=== PATIENT | female | born 1940 | race Two or more races ===

== ENCOUNTER 2017-06-27 10:10 | Inpatient (IN) | payer MEDICARE, OTHER ==
[~2017-06-27] VITALS: Ht 152.4 cm; Wt 57.9 kg
[~2017-06-27 10:10] MED LIST: ASPI81CH43; ATEN50TA; CALC0.25; CHOL20003; CRAN400T2; FURO40TA4; HUMALOG; HYDR50TA15; INSLANTI SC; ISOS1TAB37; LOSA50TA6; LOVA40TA55; NITR0.4S31
[2017-06-27] MEDS ORDERED: LEVOFLOXACIN 500 MG/100 ML PREMIX BAG IV ONE (10:30)
[2017-06-27 13:13] LABS: Basophils # (auto) 0.1 uL; Basophils % (auto) 1.4 % (0.0-2.0); Eosinophils # (auto) 0 uL; Eosinophils % (auto) 0.6 % (0.0-7.0); Hematocrit 32.1 % (36.0-46.0); Hemoglobin 10.6 g/dL (12.2-16.2); Lymphocytes # (auto) 0.6 uL; Lymphocytes % (auto) 13.3 % (10.0-50.0); Mean Corpuscular Hemoglobin 30.5 pg (28.0-32.0); Mean Corpuscular Volume 92.5 fL (80.0-100.0); Monocytes # (auto) 0.4 uL; Monocytes % (auto) 8.7 % (0.0-12.0); Neutrophils # (auto) 3.5 uL; Nucleated Red Blood Cells % 0.2 %; Platelet Count (auto) 172 10^3/uL (140-450); Red Blood Cells 3.47 10^6/uL (4.0-5.20); Red Cell Distribution Width 18.9 % (11.8-14.3); White Blood Cell 4.7 10^3/uL (4.4-10.8)
[2017-06-27 13:22] LABS: Albumin 2.9 g/dL (3.4-5.0); BUN/Creatinine Ratio 22.6; Calcium 8.3 mg/dL (8.5-10.1); Magnesium 2.6 mg/dL (1.6-2.6); Potassium 4.9 mmol/L (3.5-5.1)
[2017-06-27 13:27] LABS: INR 1.21 (0.9-1.15); Partial Thromboplastin Time 37.5 sec (22.64-33.71); Prothrombin Time 13.2 sec (9.37-12.3)
[2017-06-27 13:38] LABS: Total Protein 6.6 g/dL (6.4-8.2)
[2017-06-27] MEDS ORDERED: NITROGLYCERIN 0.4 MG SL TAB SL PRN (14:15)
[2017-06-27] MEDS ORDERED: MORPHINE SULFATE 4 MG/ML SYR/VIAL IV PRN (14:15)
[2017-06-27] MEDS ORDERED: POTASSIUM CHL 10 Meq TABLET PO ONE (14:15)
[2017-06-27] MEDS ORDERED: ONDANSETRON HCL 4 MG/2 ML VIAL IV PRN (14:15)
[2017-06-27] MEDS ORDERED: cefTRIAXone 1GM/10ml IVPUSH 10 ML IV ONE (14:15)
[2017-06-27] MEDS ORDERED: AZITHROMYCIN 500MG/ 250ML 250 ML IV ONE (14:15)
[2017-06-27] MEDS ORDERED: ASPirin 81 mg TAB PO ONE (14:15)
[2017-06-27] MEDS ORDERED: FUROSEMIDE 40 MG TAB PO ONE (14:15)
[2017-06-27 14:56] LABS: Urine Bacteria MOD /hpf (None Seen); Urine Blood Negative /uL (Negative); Urine Specific Gravity 1.013 (1.001-1.035); Urine WBC 6 /hpf (0 - 5)
[2017-06-27] MEDS ORDERED: IPRATROPIUM BROM 0.5 MG/2.5ML INH SOL NEB ONE (15:15)
[2017-06-27] MEDS ORDERED: ALBUTEROL SULF 2.5 MG/0.5ML(0.5%) NEB SOLN NEB ONE (15:15)
[2017-06-27] MEDS: ISOSORBIDE DINITRATE 10 MG TAB PO SCH (18:48)
[2017-06-27] MEDS: ACETAMINOPHEN 500 MG TAB PO PRN (18:48)
[2017-06-27 22:00] VITALS: BP 107/56
[2017-06-27 22:10] VITALS: BP 107/56
[2017-06-27] MEDS: ATORVASTATIN 20 MG TAB PO SCH (22:36)
[2017-06-28] MEDS ORDERED: CRAN125T PO (02:58)
[2017-06-28] MEDS ORDERED: HYDR50TA15 PO (02:58)
[2017-06-28] MEDS ORDERED: INSLISPI SC (02:58)
[2017-06-28] MEDS ORDERED: INSLANTI SC ×2 (02:58)
[2017-06-28] MEDS ORDERED: ISOS1TAB37 PO (02:58)
[2017-06-28] MEDS ORDERED: LOSA50TA6 PO (02:58)
[2017-06-28] MEDS ORDERED: NITR0.4S29 SL (02:58)
[2017-06-28] MEDS ORDERED: ATEN50TA PO (02:58)
[2017-06-28] MEDS ORDERED: FURO40TA4 PO (02:58)
[2017-06-28] MEDS ORDERED: CHOL20007 OR (02:58)
[2017-06-28] MEDS ORDERED: CALC3OIN2 EX (02:58)
[2017-06-28] MEDS ORDERED: LOVA40TA72 PO (02:58)
[2017-06-28] MEDS ORDERED: ASPI81TA27 PO (02:58)
[2017-06-28] MEDS ORDERED: HEPARIN DRIP/D5W 100UNITS/ML 250 ML IV SCH ×2 (03:13→07:00)
[2017-06-28] MEDS ORDERED: DEXTROSE (50%) 50ML SYRG IV PRN (03:15)
[2017-06-28] MEDS ORDERED: HEPARIN SODIUM (PORCINE) 5000 UNITS/ML 1ML VIAL IV ONE (03:15)
[2017-06-28 04:58] LABS: Basophils # (auto) 0 uL; Basophils % (auto) 0.6 % (0.0-2.0); Eosinophils # (auto) 0 uL; Eosinophils % (auto) 0.8 % (0.0-7.0); Hematocrit 35.7 % (36.0-46.0); Hemoglobin 10.7 g/dL (12.2-16.2); Lymphocytes # (auto) 0.7 uL; Lymphocytes % (auto) 12.1 % (10.0-50.0); Mean Corpuscular Hgb Conc. 30.1 g/dL (32.0-36.0); Mean Corpuscular Volume 99.6 fL (80.0-100.0); Monocytes # (auto) 0.3 uL; Monocytes % (auto) 5.6 % (0.0-12.0); Neutrophils % (auto) 80.9 % (37.0-80.0); Nucleated Red Blood Cells % 0.3 %; Platelet Count (auto) 160 10^3/uL (140-450); Red Blood Cells 3.58 10^6/uL (4.0-5.20); Red Cell Distribution Width 19.3 % (11.8-14.3); White Blood Cell 6.1 10^3/uL (4.4-10.8)
[2017-06-28 05:00] VITALS: BP 144/60
[2017-06-28] MEDS: ACETAMINOPHEN 500 MG TAB PO PRN ×2 (05:07→18:16)
[2017-06-28 05:09] LABS: INR 1.05 (0.9-1.15); Partial Thromboplastin Time 33.6 sec (22.64-33.71); Prothrombin Time 11.4 sec (9.37-12.3)
[2017-06-28] MEDS: ISOSORBIDE DINITRATE 10 MG TAB PO SCH ×3 (05:14→18:00)
[2017-06-28] MEDS ORDERED: LEVALBUTEROL HCL 1.25 MG/3 ML NEB NEB SCH (05:30)
[2017-06-28] MEDS: ACCU-CHEK COMFORT CURVE STRIP VI SCH ×4 (06:13→21:52)
[2017-06-28] MEDS: InsuLIN REG 1unit/0.01ml Soln (100units/ml) SC SCH ×4 (06:14→21:53)
[2017-06-28] MEDS ORDERED: cefTRIAXone 1GM/10ml IVPUSH 10 ML IV SCH (09:00)
[2017-06-28 09:24] VITALS: BP 110/48
[2017-06-28] MEDS ORDERED: POTASSIUM CHL 10 Meq TABLET PO SCH (10:00)
[2017-06-28] MEDS ORDERED: FUROSEMIDE 40 MG TAB PO SCH (10:00)
[2017-06-28] MEDS ORDERED: FUROSEMIDE 20 MG/2 ML VIAL IV SCH (10:00)
[2017-06-28] MEDS ORDERED: ENOXAPARIN SOD 30 MG/0.3 ML SYRINGE SC ONE (10:00)
[2017-06-28] MEDS: ASPirin 81 mg TAB PO SCH (11:26)
[2017-06-28] MEDS: HYDROcodone-ACET 5/325MG TAB PO PRN ×2 (11:38→21:48)
[2017-06-28] MEDS: AZITHROMYCIN 500MG/ 250ML 250 ML IV SCH (11:44)
[2017-06-28 13:00] VITALS: BP 126/87
[2017-06-28 13:46] LABS: INR 1.05 (0.9-1.15); Partial Thromboplastin Time 58.4 sec (22.64-33.71); Prothrombin Time 11.4 sec (9.37-12.3)
[2017-06-28 20:06] LABS: INR 1.05 (0.9-1.15); Prothrombin Time 11.5 sec (9.37-12.3)
[2017-06-28 20:18] LABS: Partial Thromboplastin Time 97.3 sec (22.64-33.71)
[2017-06-28] MEDS: ATORVASTATIN 20 MG TAB PO SCH (21:49)
[2017-06-28] MEDS: HEPARIN DRIP/D5W 100UNITS/ML 250 ML IV SCH (21:52)
[2017-06-28 22:00] VITALS: BP 111/50
[2017-06-28] MEDS: LEVALBUTEROL HCL 1.25 MG/3 ML NEB NEB SCH (22:00)
[2017-06-29] VITALS (8 sets, daily range): BP systolic 79–149; BP diastolic 30–99
[2017-06-29 03:26] LABS: Basophils # (auto) 0 uL; Basophils % (auto) 0.6 % (0.0-2.0); Eosinophils # (auto) 0 uL; Eosinophils % (auto) 0.2 % (0.0-7.0); Hematocrit 31.7 % (36.0-46.0); Hemoglobin 10.4 g/dL (12.2-16.2); Lymphocytes # (auto) 1.1 uL; Lymphocytes % (auto) 19.6 % (10.0-50.0); Mean Corpuscular Hemoglobin 30.4 pg (28.0-32.0); Mean Corpuscular Hgb Conc. 32.9 g/dL (32.0-36.0); Mean Corpuscular Volume 92.5 fL (80.0-100.0); Monocytes # (auto) 0.3 uL; Monocytes % (auto) 4.9 % (0.0-12.0); Neutrophils # (auto) 4.1 uL; Neutrophils % (auto) 74.7 % (37.0-80.0); Nucleated Red Blood Cells % 0.2 %; Platelet Count (auto) 151 10^3/uL (140-450); Red Blood Cells 3.43 10^6/uL (4.0-5.20); Red Cell Distribution Width 19.6 % (11.8-14.3); White Blood Cell 5.5 10^3/uL (4.4-10.8)
[2017-06-29 03:35] LABS: INR 1.05 (0.9-1.15); Partial Thromboplastin Time 59.5 sec (22.64-33.71); Prothrombin Time 11.5 sec (9.37-12.3)
[2017-06-29] MEDS: ACETAMINOPHEN 500 MG TAB PO PRN ×2 (05:07→17:11)
[2017-06-29] MEDS: ISOSORBIDE DINITRATE 10 MG TAB PO SCH ×3 (05:07→18:01)
[2017-06-29] MEDS: MORPHINE SULFATE 4 MG/ML SYR/VIAL IV PRN (05:08)
[2017-06-29] MEDS ORDERED: CEFTAROLINE IV STA (06:02)
[2017-06-29] MEDS ORDERED: AMIODARONE HCL 200 MG TAB PO ONE (06:15)
[2017-06-29] MEDS: ACCU-CHEK COMFORT CURVE STRIP VI SCH ×4 (06:15→21:53)
[2017-06-29] MEDS ORDERED: DIGOXIN 0.125 MG TAB PO ONE (06:15)
[2017-06-29] MEDS: InsuLIN REG 1unit/0.01ml Soln (100units/ml) SC SCH ×4 (06:16→22:24)
[2017-06-29] MEDS: LEVALBUTEROL HCL 1.25 MG/3 ML NEB NEB SCH ×3 (06:40→18:58)
[2017-06-29] MEDS: SOD CHL 0.45% 1,000 ML IV SCH (06:47)
[2017-06-29 09:33] LABS: INR 1.05 (0.9-1.15); Partial Thromboplastin Time 57.2 sec (22.64-33.71); Prothrombin Time 11.5 sec (9.37-12.3)
[2017-06-29] MEDS ORDERED: CEFTAROLINE IV SCH (10:00)
[2017-06-29] MEDS: ASPirin 81 mg TAB PO SCH (10:32)
[2017-06-29] MEDS: AZITHROMYCIN 500MG/ 250ML 250 ML IV SCH (10:32)
[2017-06-29] MEDS: cefTRIAXone 1GM/10ml IVPUSH 10 ML IV SCH (10:33)
[2017-06-29] MEDS ORDERED: VANCOMYCIN PER PHARMACY 0 MG IV SCH (14:45)
[2017-06-29 15:21] LABS: INR 1.03 (0.9-1.15); Partial Thromboplastin Time 65.1 sec (22.64-33.71); Prothrombin Time 11.2 sec (9.37-12.3)
[2017-06-29] MEDS: VANCOMYCIN 1GM/250ML 250 ML IV SCH (16:19)
[2017-06-29] MEDS: HYDROcodone-ACET 5/325MG TAB PO PRN (17:36)
[2017-06-29] MEDS: HEPARIN DRIP/D5W 100UNITS/ML 250 ML IV SCH (21:15)
[2017-06-29] MEDS: ATORVASTATIN 20 MG TAB PO SCH (22:23)
[2017-06-30] VITALS (7 sets, daily range): BP systolic 80–157; BP diastolic 34–72
[2017-06-30] MEDS: LEVALBUTEROL HCL 1.25 MG/3 ML NEB NEB SCH ×5 (00:02→22:22)
[2017-06-30] MEDS: SOD CHL 0.45% 1,000 ML IV SCH ×2 (04:27→21:29)
[2017-06-30] MEDS: HYDROcodone-ACET 5/325MG TAB PO PRN (05:51)
[2017-06-30] MEDS: ISOSORBIDE DINITRATE 10 MG TAB PO SCH ×3 (06:00→18:00)
[2017-06-30] MEDS: InsuLIN REG 1unit/0.01ml Soln (100units/ml) SC SCH ×5 (06:28→21:48)
[2017-06-30] MEDS: ACCU-CHEK COMFORT CURVE STRIP VI SCH ×4 (06:28→21:44)
[2017-06-30 07:05] LABS: Basophils # (auto) 0 uL; Basophils % (auto) 0.5 % (0.0-2.0); Eosinophils # (auto) 0.1 uL; Eosinophils % (auto) 2.2 % (0.0-7.0); Hematocrit 30.2 % (36.0-46.0); Hemoglobin 10.4 g/dL (12.2-16.2); Lymphocytes # (auto) 0.9 uL; Lymphocytes % (auto) 18.5 % (10.0-50.0); Mean Corpuscular Hgb Conc. 34.4 g/dL (32.0-36.0); Mean Corpuscular Volume 90.2 fL (80.0-100.0); Monocytes # (auto) 0.3 uL; Monocytes % (auto) 6.6 % (0.0-12.0); Neutrophils # (auto) 3.6 uL; Neutrophils % (auto) 72.2 % (37.0-80.0); Nucleated Red Blood Cells % 0.1 %; Platelet Count (auto) 138 10^3/uL (140-450); Red Blood Cells 3.35 10^6/uL (4.0-5.20); Red Cell Distribution Width 18.6 % (11.8-14.3); White Blood Cell 4.9 10^3/uL (4.4-10.8)
[2017-06-30 07:13] LABS: INR 0.98 (0.9-1.15); Partial Thromboplastin Time 47.4 sec (22.64-33.71); Prothrombin Time 10.7 sec (9.37-12.3)
[2017-06-30 07:16] LABS: Albumin 2.4 g/dL (3.4-5.0); BUN/Creatinine Ratio 23.5; Calcium 7.5 mg/dL (8.5-10.1); Potassium 4.5 mmol/L (3.5-5.1)
[2017-06-30 07:19] LABS: Bilirubin, Total 0.8 mg/dL (0.2-1.0); Total Protein 5.8 g/dL (6.4-8.2)
[2017-06-30] MEDS: cefTRIAXone 1GM/10ml IVPUSH 10 ML IV SCH (09:53)
[2017-06-30] MEDS: ASPirin 81 mg TAB PO SCH (09:53)
[2017-06-30] MEDS: AZITHROMYCIN 500MG/ 250ML 250 ML IV SCH (09:53)
[2017-06-30] MEDS: DIGOXIN 0.125 MG TAB PO SCH (09:54)
[2017-06-30] MEDS: AMIODARONE HCL 200 MG TAB PO SCH (09:54)
[2017-06-30] MEDS: HEPARIN DRIP/D5W 100UNITS/ML 250 ML IV SCH ×2 (10:18→21:28)
[2017-06-30] MEDS: VANCOMYCIN 1GM/250ML 250 ML IV SCH (15:50)
[2017-06-30 17:07] LABS: Prothrombin Time 10.9 sec (9.37-12.3)
[2017-06-30 17:11] LABS: Partial Thromboplastin Time 74.6 sec (22.64-33.71)
[2017-06-30] MEDS: ACETAMINOPHEN 500 MG TAB PO PRN (21:26)
[2017-06-30] MEDS: ATORVASTATIN 20 MG TAB PO SCH (21:26)
[2017-06-30 22:45] LABS: INR 0.95 (0.9-1.15); Partial Thromboplastin Time 36.3 sec (22.64-33.71); Prothrombin Time 10.4 sec (9.37-12.3)
[2017-07-01] MEDS ORDERED: MEROPENEM 1 GM IV SCH
[2017-07-01] MEDS: LEVALBUTEROL HCL 1.25 MG/3 ML NEB NEB SCH ×4 (00:19→18:36)
[2017-07-01 05:00] VITALS: BP 121/62
[2017-07-01] MEDS: ISOSORBIDE DINITRATE 10 MG TAB PO SCH ×3 (06:00→18:00)
[2017-07-01] MEDS: ACCU-CHEK COMFORT CURVE STRIP VI SCH ×4 (06:25→21:13)
[2017-07-01] MEDS: InsuLIN REG 1unit/0.01ml Soln (100units/ml) SC SCH ×4 (06:46→21:14)
[2017-07-01] MEDS: MEROPENEM 1GM IVPB 100 ML IV SCH ×2 (06:55)
[2017-07-01 07:19] LABS: Basophils # (auto) 0 uL; Basophils % (auto) 0.5 % (0.0-2.0); Eosinophils # (auto) 0.1 uL; Eosinophils % (auto) 1.6 % (0.0-7.0); Hematocrit 28.1 % (36.0-46.0); Hemoglobin 9.6 g/dL (12.2-16.2); Lymphocytes % (auto) 24.2 % (10.0-50.0); Mean Corpuscular Hemoglobin 30.6 pg (28.0-32.0); Mean Corpuscular Hgb Conc. 34.1 g/dL (32.0-36.0); Mean Corpuscular Volume 89.8 fL (80.0-100.0); Monocytes # (auto) 0.4 uL; Monocytes % (auto) 10.2 % (0.0-12.0); Neutrophils # (auto) 2.7 uL; Neutrophils % (auto) 63.5 % (37.0-80.0); Nucleated Red Blood Cells % 0.2 %; Platelet Count (auto) 129 10^3/uL (140-450); Red Blood Cells 3.13 10^6/uL (4.0-5.20); Red Cell Distribution Width 18.9 % (11.8-14.3); White Blood Cell 4.3 10^3/uL (4.4-10.8)
[2017-07-01 07:40] LABS: Albumin 2.1 g/dL (3.4-5.0); Calcium 7.8 mg/dL (8.5-10.1); Potassium 4.1 mmol/L (3.5-5.1)
[2017-07-01 07:42] LABS: BUN/Creatinine Ratio 21.4
[2017-07-01 07:45] LABS: Bilirubin, Total 0.6 mg/dL (0.2-1.0); Prothrombin Time 10.9 sec (9.37-12.3); Total Protein 5.3 g/dL (6.4-8.2)
[2017-07-01 08:06] LABS: Partial Thromboplastin Time 137.5 sec (22.64-33.71)
[2017-07-01] MEDS ORDERED: HEPARIN DRIP/D5W 100UNITS/ML 250 ML IV SCH (09:15)
[2017-07-01] MEDS: AZITHROMYCIN 500MG/ 250ML 250 ML IV SCH (10:16)
[2017-07-01] MEDS: ASPirin 81 mg TAB PO SCH (10:16)
[2017-07-01] MEDS: DIGOXIN 0.125 MG TAB PO SCH (10:17)
[2017-07-01] MEDS: AMIODARONE HCL 200 MG TAB PO SCH (10:17)
[2017-07-01] MEDS ORDERED: IOHEXOL 350 MG/ML 100ML IJ ONE (11:49)
[2017-07-01 13:00] VITALS: BP 156/74
[2017-07-01] MEDS: MEROPENEM 1gm/20ml IVPUSH 20 ML IV SCH ×2 (14:28→21:13)
[2017-07-01 14:42] LABS: INR 0.98 (0.9-1.15); Partial Thromboplastin Time 63.2 sec (22.64-33.71); Prothrombin Time 10.7 sec (9.37-12.3)
[2017-07-01] MEDS: VANCOMYCIN 1GM/250ML 250 ML IV SCH (15:02)
[2017-07-01 16:52] VITALS: BP 105/55
[2017-07-01] MEDS: MORPHINE SULFATE 4 MG/ML SYR/VIAL IV PRN (17:40)
[2017-07-01] MEDS: SOD CHL 0.45% 1,000 ML IV SCH (18:08)
[2017-07-01] MEDS: Boost Glucose Control 8 Ounces PO SCH (18:08)
[2017-07-01] MEDS: PRO-STAT 64 30ML PO SCH (18:08)
[2017-07-01] MEDS: HYDROcodone-ACET 5/325MG TAB PO PRN (21:13)
[2017-07-01] MEDS: ATORVASTATIN 20 MG TAB PO SCH (21:13)
[2017-07-01 22:01] LABS: INR 0.93 (0.9-1.15); Partial Thromboplastin Time 35.6 sec (22.64-33.71); Prothrombin Time 10.1 sec (9.37-12.3)
[2017-07-01 22:43] VITALS: BP 124/61
[2017-07-02] VITALS (7 sets, daily range): BP systolic 102–129; BP diastolic 37–61
[2017-07-02 05:55] LABS: Basophils # (auto) 0 uL; Basophils % (auto) 0.6 % (0.0-2.0); Eosinophils # (auto) 0.5 uL; Eosinophils % (auto) 9.6 % (0.0-7.0); Hemoglobin 9.6 g/dL (12.2-16.2); Lymphocytes # (auto) 1.5 uL; Lymphocytes % (auto) 32.6 % (10.0-50.0); Mean Corpuscular Hemoglobin 29.9 pg (28.0-32.0); Mean Corpuscular Hgb Conc. 33.1 g/dL (32.0-36.0); Mean Corpuscular Volume 90.5 fL (80.0-100.0); Monocytes # (auto) 0.7 uL; Monocytes % (auto) 13.9 % (0.0-12.0); Neutrophils % (auto) 43.3 % (37.0-80.0); Nucleated Red Blood Cells % 0.1 %; Platelet Count (auto) 152 10^3/uL (140-450); White Blood Cell 4.7 10^3/uL (4.4-10.8)
[2017-07-02] MEDS: ISOSORBIDE DINITRATE 10 MG TAB PO SCH ×3 (06:00→18:00)
[2017-07-02] MEDS: ACCU-CHEK COMFORT CURVE STRIP VI SCH ×4 (06:16→22:06)
[2017-07-02] MEDS: MEROPENEM 1gm/20ml IVPUSH 20 ML IV SCH ×3 (06:16→22:05)
[2017-07-02 06:18] LABS: Albumin 2.1 g/dL (3.4-5.0); BUN/Creatinine Ratio 21.9; Bilirubin, Total 0.6 mg/dL (0.2-1.0); Potassium 4.5 mmol/L (3.5-5.1); Total Protein 5.3 g/dL (6.4-8.2)
[2017-07-02] MEDS: InsuLIN REG 1unit/0.01ml Soln (100units/ml) SC SCH ×4 (06:21→22:06)
[2017-07-02] MEDS: LEVALBUTEROL HCL 1.25 MG/3 ML NEB NEB SCH ×5 (06:33→22:05)
[2017-07-02] MEDS: Boost Glucose Control 8 Ounces PO SCH ×3 (08:00→18:00)
[2017-07-02] MEDS: ENOXAPARIN SOD 40 MG/0.4 ML SYRINGE SC SCH (10:00)
[2017-07-02] MEDS: PRO-STAT 64 30ML PO SCH (10:00)
[2017-07-02] MEDS: AMIODARONE HCL 200 MG TAB PO SCH (10:45)
[2017-07-02] MEDS: ASPirin 81 mg TAB PO SCH (10:45)
[2017-07-02] MEDS: DIGOXIN 0.125 MG TAB PO SCH (10:46)
[2017-07-02] MEDS: AZITHROMYCIN 500MG/ 250ML 250 ML IV SCH (10:47)
[2017-07-02] MEDS: SOD CHL 0.45% 1,000 ML IV SCH (15:34)
[2017-07-02] MEDS: VANCOMYCIN 1GM/250ML 250 ML IV SCH (16:21)
[2017-07-02] MEDS: ATORVASTATIN 20 MG TAB PO SCH (22:06)
[2017-07-02] MEDS: HYDROcodone-ACET 5/325MG TAB PO PRN (23:59)
[2017-07-03 05:11] VITALS: BP 111/50
[2017-07-03 05:16] VITALS: BP 124/56
[2017-07-03 05:30] LABS: Basophils # (auto) 0 uL; Basophils % (auto) 0.9 % (0.0-2.0); Eosinophils # (auto) 0.5 uL; Eosinophils % (auto) 9.6 % (0.0-7.0); Hematocrit 26.7 % (36.0-46.0); Hemoglobin 8.9 g/dL (12.2-16.2); Lymphocytes # (auto) 1.4 uL; Mean Corpuscular Hemoglobin 30.1 pg (28.0-32.0); Mean Corpuscular Hgb Conc. 33.5 g/dL (32.0-36.0); Mean Corpuscular Volume 89.9 fL (80.0-100.0); Monocytes # (auto) 0.7 uL; Monocytes % (auto) 13.9 % (0.0-12.0); Neutrophils # (auto) 2.5 uL; Neutrophils % (auto) 47.6 % (37.0-80.0); Nucleated Red Blood Cells % 0.2 %; Platelet Count (auto) 176 10^3/uL (140-450); Red Blood Cells 2.97 10^6/uL (4.0-5.20); Red Cell Distribution Width 19.1 % (11.8-14.3); White Blood Cell 5.1 10^3/uL (4.4-10.8)
[2017-07-03] MEDS: LEVALBUTEROL HCL 1.25 MG/3 ML NEB NEB SCH ×4 (06:00→22:28)
[2017-07-03] MEDS: MEROPENEM 1gm/20ml IVPUSH 20 ML IV SCH ×3 (06:35→21:53)
[2017-07-03] MEDS: ISOSORBIDE DINITRATE 10 MG TAB PO SCH ×3 (06:36→17:56)
[2017-07-03] MEDS: InsuLIN REG 1unit/0.01ml Soln (100units/ml) SC SCH ×4 (06:36→21:53)
[2017-07-03] MEDS: ACCU-CHEK COMFORT CURVE STRIP VI SCH ×4 (06:36→21:54)
[2017-07-03] MEDS: HYDROcodone-ACET 5/325MG TAB PO PRN ×2 (07:57→20:18)
[2017-07-03] MEDS: Boost Glucose Control 8 Ounces PO SCH ×3 (08:00→17:56)
[2017-07-03 09:00] VITALS: BP 122/53
[2017-07-03] MEDS: AZITHROMYCIN 500MG/ 250ML 250 ML IV SCH (10:00)
[2017-07-03] MEDS: SOD CHL 0.45% 1,000 ML IV SCH (10:15)
[2017-07-03] MEDS: ASPirin 81 mg TAB PO SCH (10:26)
[2017-07-03] MEDS: PRO-STAT 64 30ML PO SCH (10:26)
[2017-07-03] MEDS: ENOXAPARIN SOD 40 MG/0.4 ML SYRINGE SC SCH (10:26)
[2017-07-03] MEDS: AMIODARONE HCL 200 MG TAB PO SCH (10:27)
[2017-07-03] MEDS: VANCOMYCIN 1GM/250ML 250 ML IV SCH (10:28)
[2017-07-03] MEDS: DIGOXIN 0.125 MG TAB PO SCH (10:28)
[2017-07-03 10:36] LABS: BUN/Creatinine Ratio 18.3; Calcium 7.8 mg/dL (8.5-10.1); Potassium 4.7 mmol/L (3.5-5.1)
[2017-07-03 13:00] VITALS: BP 127/51
[2017-07-03] MEDS ORDERED: FUROSEMIDE 40 MG/4 ML VIAL IV ONE (15:15)
[2017-07-03 16:36] VITALS: BP 103/60
[2017-07-03] MEDS: LACTULOSE 20Gm/30ML SOLN PO PRN (18:50)
[2017-07-03] MEDS: ATORVASTATIN 20 MG TAB PO SCH (21:53)
[2017-07-03 22:05] VITALS: BP 121/55
[2017-07-04] MEDS: HYDROcodone-ACET 5/325MG TAB PO PRN ×3 (03:30→21:39)
[2017-07-04] MEDS: VANCOMYCIN 1GM/250ML 250 ML IV SCH ×2 (04:00→21:26)
[2017-07-04 05:18] VITALS: BP 113/62
[2017-07-04] MEDS: MEROPENEM 1gm/20ml IVPUSH 20 ML IV SCH ×3 (06:27→21:39)
[2017-07-04] MEDS: ISOSORBIDE DINITRATE 10 MG TAB PO SCH ×3 (06:28→17:54)
[2017-07-04] MEDS: SOD CHL 0.45% 1,000 ML IV SCH (06:28)
[2017-07-04] MEDS: ACCU-CHEK COMFORT CURVE STRIP VI SCH ×4 (06:28→21:28)
[2017-07-04] MEDS: LEVALBUTEROL HCL 1.25 MG/3 ML NEB NEB SCH ×3 (06:31→19:15)
[2017-07-04] MEDS: InsuLIN REG 1unit/0.01ml Soln (100units/ml) SC SCH ×4 (06:53→22:00)
[2017-07-04] MEDS: Boost Glucose Control 8 Ounces PO SCH ×3 (07:19→17:30)
[2017-07-04 08:08] LABS: Basophils # (auto) 0.1 uL; Eosinophils # (auto) 0.8 uL; Eosinophils % (auto) 13.5 % (0.0-7.0); Hematocrit 27.2 % (36.0-46.0); Hemoglobin 9.2 g/dL (12.2-16.2); Lymphocytes # (auto) 1.8 uL; Lymphocytes % (auto) 31.8 % (10.0-50.0); Mean Corpuscular Hemoglobin 30.4 pg (28.0-32.0); Mean Corpuscular Hgb Conc. 33.7 g/dL (32.0-36.0); Monocytes # (auto) 0.7 uL; Monocytes % (auto) 12.3 % (0.0-12.0); Neutrophils # (auto) 2.4 uL; Neutrophils % (auto) 41.4 % (37.0-80.0); Nucleated Red Blood Cells % 0.1 %; Platelet Count (auto) 229 10^3/uL (140-450); Red Blood Cells 3.02 10^6/uL (4.0-5.20); Red Cell Distribution Width 18.5 % (11.8-14.3); White Blood Cell 5.7 10^3/uL (4.4-10.8)
[2017-07-04 08:26] LABS: BUN/Creatinine Ratio 17.1; Calcium 7.9 mg/dL (8.5-10.1); Potassium 4.1 mmol/L (3.5-5.1)
[2017-07-04 09:00] VITALS: BP 114/44
[2017-07-04] MEDS: DIGOXIN 0.125 MG TAB PO SCH (10:00)
[2017-07-04] MEDS: AMIODARONE HCL 200 MG TAB PO SCH (10:19)
[2017-07-04] MEDS: ASPirin 81 mg TAB PO SCH (10:19)
[2017-07-04] MEDS: PRO-STAT 64 30ML PO SCH (10:20)
[2017-07-04] MEDS: ENOXAPARIN SOD 40 MG/0.4 ML SYRINGE SC SCH (10:20)
[2017-07-04] MEDS: AZITHROMYCIN 500MG/ 250ML 250 ML IV SCH (10:20)
[2017-07-04 13:00] VITALS: BP 97/40
[2017-07-04 17:00] VITALS: BP 106/48
[2017-07-04] MEDS: ACETAMINOPHEN 500 MG TAB PO PRN (17:59)
[2017-07-04] MEDS: ATORVASTATIN 20 MG TAB PO SCH (21:27)
[2017-07-04 22:00] VITALS: BP 120/93
[2017-07-05] VITALS (8 sets, daily range): BP systolic 111–158; BP diastolic 50–98
[2017-07-05] MEDS: LEVALBUTEROL HCL 1.25 MG/3 ML NEB NEB SCH ×4 (00:05→19:04)
[2017-07-05] MEDS: SOD CHL 0.45% 1,000 ML IV SCH (01:34)
[2017-07-05] MEDS: MORPHINE SULFATE 4 MG/ML SYR/VIAL IV PRN (01:35)
[2017-07-05] MEDS: HYDROcodone-ACET 5/325MG TAB PO PRN ×2 (04:39→21:08)
[2017-07-05 05:41] LABS: Basophils # (auto) 0.1 uL; Basophils % (auto) 2.1 % (0.0-2.0); Eosinophils # (auto) 0.8 uL; Eosinophils % (auto) 13.3 % (0.0-7.0); Hematocrit 28.1 % (36.0-46.0); Hemoglobin 9.2 g/dL (12.2-16.2); Lymphocytes # (auto) 1.7 uL; Lymphocytes % (auto) 29.6 % (10.0-50.0); Mean Corpuscular Hemoglobin 29.8 pg (28.0-32.0); Mean Corpuscular Hgb Conc. 32.7 g/dL (32.0-36.0); Mean Corpuscular Volume 91.1 fL (80.0-100.0); Monocytes # (auto) 0.6 uL; Monocytes % (auto) 10.7 % (0.0-12.0); Neutrophils # (auto) 2.6 uL; Neutrophils % (auto) 44.3 % (37.0-80.0); Nucleated Red Blood Cells % 0.1 %; Platelet Count (auto) 259 10^3/uL (140-450); Red Blood Cells 3.09 10^6/uL (4.0-5.20); White Blood Cell 5.8 10^3/uL (4.4-10.8)
[2017-07-05] MEDS: InsuLIN REG 1unit/0.01ml Soln (100units/ml) SC SCH ×4 (06:13→21:43)
[2017-07-05] MEDS: ACCU-CHEK COMFORT CURVE STRIP VI SCH ×4 (06:14→21:08)
[2017-07-05] MEDS: ISOSORBIDE DINITRATE 10 MG TAB PO SCH ×3 (06:14→17:21)
[2017-07-05] MEDS: MEROPENEM 1gm/20ml IVPUSH 20 ML IV SCH ×3 (06:14→22:03)
[2017-07-05] MEDS: LACTULOSE 20Gm/30ML SOLN PO PRN (06:15)
[2017-07-05] MEDS: Boost Glucose Control 8 Ounces PO SCH ×3 (07:26→17:22)
[2017-07-05] MEDS: VANCOMYCIN 1GM/250ML 250 ML IV SCH (09:13)
[2017-07-05] MEDS: ENOXAPARIN SOD 40 MG/0.4 ML SYRINGE SC SCH (09:16)
[2017-07-05] MEDS: ASPirin 81 mg TAB PO SCH (09:16)
[2017-07-05] MEDS: AMIODARONE HCL 200 MG TAB PO SCH (09:16)
[2017-07-05] MEDS: DIGOXIN 0.125 MG TAB PO SCH (09:17)
[2017-07-05] MEDS: PRO-STAT 64 30ML PO SCH (09:17)
[2017-07-05] MEDS: AZITHROMYCIN 500MG/ 250ML 250 ML IV SCH (11:43)
[2017-07-05] MEDS: ATORVASTATIN 20 MG TAB PO SCH (22:01)
[2017-07-06] VITALS (7 sets, daily range): BP systolic 97–139; BP diastolic 50–73
[2017-07-06] MEDS: LEVALBUTEROL HCL 1.25 MG/3 ML NEB NEB SCH ×5 (00:20→22:29)
[2017-07-06] MEDS: ACETAMINOPHEN 500 MG TAB PO PRN (02:36)
[2017-07-06] MEDS: HYDROcodone-ACET 5/325MG TAB PO PRN ×2 (03:37→12:04)
[2017-07-06] MEDS: ISOSORBIDE DINITRATE 10 MG TAB PO SCH ×3 (06:00→17:57)
[2017-07-06] MEDS: MEROPENEM 1gm/20ml IVPUSH 20 ML IV SCH ×3 (06:11→22:00)
[2017-07-06] MEDS: ACCU-CHEK COMFORT CURVE STRIP VI SCH ×4 (06:23→22:00)
[2017-07-06] MEDS: InsuLIN REG 1unit/0.01ml Soln (100units/ml) SC SCH ×4 (06:29→22:00)
[2017-07-06] MEDS: Boost Glucose Control 8 Ounces PO SCH ×3 (08:00→17:57)
[2017-07-06] MEDS: VANCOMYCIN 1GM/250ML 250 ML IV SCH (08:24)
[2017-07-06] MEDS: AMIODARONE HCL 200 MG TAB PO SCH (09:56)
[2017-07-06] MEDS: ASPirin 81 mg TAB PO SCH (09:56)
[2017-07-06] MEDS: ENOXAPARIN SOD 40 MG/0.4 ML SYRINGE SC SCH (09:56)
[2017-07-06] MEDS: DIGOXIN 0.125 MG TAB PO SCH (09:57)
[2017-07-06] MEDS: PRO-STAT 64 30ML PO SCH (09:58)
[2017-07-06] MEDS: AZITHROMYCIN 500MG/ 250ML 250 ML IV SCH (09:58)
[2017-07-06] MEDS: ATORVASTATIN 20 MG TAB PO SCH (22:00)
[2017-07-07] MEDS: HYDROcodone-ACET 5/325MG TAB PO PRN ×4 (00:12→22:56)
[2017-07-07 05:18] VITALS: BP 107/69
[2017-07-07] MEDS: InsuLIN REG 1unit/0.01ml Soln (100units/ml) SC SCH ×4 (06:04→22:44)
[2017-07-07] MEDS: LEVALBUTEROL HCL 1.25 MG/3 ML NEB NEB SCH ×4 (06:44→22:25)
[2017-07-07] MEDS: MEROPENEM 1gm/20ml IVPUSH 20 ML IV SCH ×3 (06:50→22:27)
[2017-07-07] MEDS: ISOSORBIDE DINITRATE 10 MG TAB PO SCH ×3 (06:51→17:12)
[2017-07-07] MEDS: ACCU-CHEK COMFORT CURVE STRIP VI SCH ×4 (06:51→22:44)
[2017-07-07] MEDS: Boost Glucose Control 8 Ounces PO SCH ×3 (08:00→18:00)
[2017-07-07 08:30] VITALS: BP 124/69
[2017-07-07 09:00] VITALS: BP 124/69
[2017-07-07] MEDS: DIGOXIN 0.125 MG TAB PO SCH (09:30)
[2017-07-07] MEDS: ASPirin 81 mg TAB PO SCH (09:31)
[2017-07-07] MEDS: VANCOMYCIN 1GM/250ML 250 ML IV SCH (09:31)
[2017-07-07] MEDS: AMIODARONE HCL 200 MG TAB PO SCH (09:31)
[2017-07-07] MEDS: ENOXAPARIN SOD 40 MG/0.4 ML SYRINGE SC SCH (09:31)
[2017-07-07] MEDS: PRO-STAT 64 30ML PO SCH (09:50)
[2017-07-07] MEDS: AZITHROMYCIN 500MG/ 250ML 250 ML IV SCH (11:54)
[2017-07-07 13:00] VITALS: BP 102/50
[2017-07-07 16:58] VITALS: BP 103/57
[2017-07-07 22:00] VITALS: BP 137/68
[2017-07-07] MEDS: ATORVASTATIN 20 MG TAB PO SCH (22:27)
[2017-07-08] VITALS (7 sets, daily range): BP systolic 115–144; BP diastolic 55–74
[2017-07-08] MEDS: HYDROcodone-ACET 5/325MG TAB PO PRN ×3 (05:23→21:20)
[2017-07-08] MEDS: MEROPENEM 1gm/20ml IVPUSH 20 ML IV SCH ×3 (06:14→21:20)
[2017-07-08] MEDS: ISOSORBIDE DINITRATE 10 MG TAB PO SCH ×3 (06:21→17:09)
[2017-07-08] MEDS: LEVALBUTEROL HCL 1.25 MG/3 ML NEB NEB SCH ×4 (06:43→22:55)
[2017-07-08] MEDS: InsuLIN REG 1unit/0.01ml Soln (100units/ml) SC SCH ×4 (07:00→21:21)
[2017-07-08] MEDS: ACCU-CHEK COMFORT CURVE STRIP VI SCH ×4 (07:20→21:21)
[2017-07-08] MEDS: Boost Glucose Control 8 Ounces PO SCH ×3 (08:00→17:46)
[2017-07-08] MEDS: ENOXAPARIN SOD 40 MG/0.4 ML SYRINGE SC SCH (09:58)
[2017-07-08] MEDS: VANCOMYCIN 1GM/250ML 250 ML IV SCH (09:58)
[2017-07-08] MEDS: AMIODARONE HCL 200 MG TAB PO SCH (09:59)
[2017-07-08] MEDS: DIGOXIN 0.125 MG TAB PO SCH (09:59)
[2017-07-08] MEDS: ASPirin 81 mg TAB PO SCH (09:59)
[2017-07-08] MEDS: PRO-STAT 64 30ML PO SCH (10:00)
[2017-07-08] MEDS: AZITHROMYCIN 500MG/ 250ML 250 ML IV SCH (13:54)
[2017-07-08] MEDS: ATORVASTATIN 20 MG TAB PO SCH (21:20)
[2017-07-09 04:48] LABS: Urine Bacteria FEW /hpf (None Seen); Urine Blood Negative /uL (Negative); Urine Specific Gravity 1.006 (1.001-1.035); Urine WBC 12 /hpf (0 - 5)
[2017-07-09 05:00] VITALS: BP 119/54
[2017-07-09 05:42] LABS: Hematocrit 27.4 % (36.0-46.0); Hemoglobin 9.1 g/dL (12.2-16.2); Mean Corpuscular Hemoglobin 30.2 pg (28.0-32.0); Mean Corpuscular Hgb Conc. 33.2 g/dL (32.0-36.0); Platelet Count (auto) 266 10^3/uL (140-450); Red Blood Cells 3.01 10^6/uL (4.0-5.20); White Blood Cell 5.4 10^3/uL (4.4-10.8)
[2017-07-09 05:55] LABS: Band Neutrophils % (manual) 0; Basophils % (manual) 0 (0.0-2.0); Blast Cells 0; Metamyelocytes % 0; Myelocytes % 0; Promyelocytes % 0
[2017-07-09] MEDS: LEVALBUTEROL HCL 1.25 MG/3 ML NEB NEB SCH ×4 (05:59→22:00)
[2017-07-09 06:09] LABS: Albumin 2.2 g/dL (3.4-5.0); BUN/Creatinine Ratio 13.5; Bilirubin, Total 0.6 mg/dL (0.2-1.0); Calcium 8.4 mg/dL (8.5-10.1); Potassium 4.4 mmol/L (3.5-5.1)
[2017-07-09 06:38] LABS: Eosinophils % (manual) 13 (0-7); Lymphocytes % (manual) 16 (10.0-50.0); Monocytes % (manual) 19 (0-12); Reactive Lymphocytes 2
[2017-07-09] MEDS: ISOSORBIDE DINITRATE 10 MG TAB PO SCH ×3 (06:55→17:26)
[2017-07-09] MEDS: MEROPENEM 1gm/20ml IVPUSH 20 ML IV SCH ×3 (06:55→22:18)
[2017-07-09] MEDS: ACCU-CHEK COMFORT CURVE STRIP VI SCH ×4 (06:56→22:00)
[2017-07-09] MEDS: InsuLIN REG 1unit/0.01ml Soln (100units/ml) SC SCH ×5 (06:56→22:52)
[2017-07-09] MEDS: Boost Glucose Control 8 Ounces PO SCH ×3 (08:00→18:00)
[2017-07-09 08:43] VITALS: BP 149/87
[2017-07-09] MEDS: VANCOMYCIN 1GM/250ML 250 ML IV SCH (08:57)
[2017-07-09] MEDS: HYDROcodone-ACET 5/325MG TAB PO PRN ×2 (09:07→18:23)
[2017-07-09] MEDS: ENOXAPARIN SOD 40 MG/0.4 ML SYRINGE SC SCH (09:07)
[2017-07-09] MEDS: DIGOXIN 0.125 MG TAB PO SCH (09:08)
[2017-07-09] MEDS: ASPirin 81 mg TAB PO SCH (09:08)
[2017-07-09] MEDS: AMIODARONE HCL 200 MG TAB PO SCH (09:08)
[2017-07-09] MEDS: PRO-STAT 64 30ML PO SCH (09:09)
[2017-07-09] MEDS: AZITHROMYCIN 500MG/ 250ML 250 ML IV SCH (11:41)
[2017-07-09] MEDS: FLUCONAZOLE 200MG/100ML 100 ML IV SCH (15:57)
[2017-07-09 16:10] VITALS: BP 135/62
[2017-07-09 18:14] LABS: Urine Bacteria NONE SEEN /hpf (None Seen); Urine Blood TRACE /uL (Negative); Urine Budding Yeast OCCASIONAL /hpf (None Seen); Urine Specific Gravity 1.011 (1.001-1.035); Urine WBC 30 /hpf (0 - 5)
[2017-07-09 20:00] VITALS: BP 140/57
[2017-07-09 21:33] VITALS: BP 140/57
[2017-07-09] MEDS: ATORVASTATIN 20 MG TAB PO SCH (22:16)
[2017-07-09] MEDS: ACETAMINOPHEN 500 MG TAB PO PRN (22:58)
[2017-07-10 04:42] VITALS: BP 116/60
[2017-07-10] MEDS: MEROPENEM 1gm/20ml IVPUSH 20 ML IV SCH ×3 (05:35→22:33)
[2017-07-10] MEDS: ISOSORBIDE DINITRATE 10 MG TAB PO SCH ×3 (05:36→17:48)
[2017-07-10] MEDS: LACTULOSE 20Gm/30ML SOLN PO PRN (05:41)
[2017-07-10] MEDS: LEVALBUTEROL HCL 1.25 MG/3 ML NEB NEB SCH ×3 (06:01→18:00)
[2017-07-10] MEDS: InsuLIN REG 1unit/0.01ml Soln (100units/ml) SC SCH ×4 (06:48→22:58)
[2017-07-10] MEDS: ACCU-CHEK COMFORT CURVE STRIP VI SCH ×4 (06:49→22:00)
[2017-07-10] MEDS: Boost Glucose Control 8 Ounces PO SCH ×3 (08:00→17:56)
[2017-07-10] MEDS: HYDROcodone-ACET 5/325MG TAB PO PRN ×2 (08:13→20:02)
[2017-07-10] MEDS: VANCOMYCIN 1GM/250ML 250 ML IV SCH (08:52)
[2017-07-10 09:00] VITALS: BP 126/59
[2017-07-10] MEDS: AMIODARONE HCL 200 MG TAB PO SCH (09:23)
[2017-07-10] MEDS: ASPirin 81 mg TAB PO SCH (09:23)
[2017-07-10] MEDS: ENOXAPARIN SOD 40 MG/0.4 ML SYRINGE SC SCH (09:23)
[2017-07-10] MEDS: DIGOXIN 0.125 MG TAB PO SCH (09:23)
[2017-07-10] MEDS: PRO-STAT 64 30ML PO SCH (09:24)
[2017-07-10] MEDS: AZITHROMYCIN 500MG/ 250ML 250 ML IV SCH (09:24)
[2017-07-10] MEDS: ACETAMINOPHEN 500 MG TAB PO PRN (12:34)
[2017-07-10 13:00] VITALS: BP 91/53
[2017-07-10] MEDS: FLUCONAZOLE 200MG/100ML 100 ML IV SCH (14:29)
[2017-07-10 17:00] VITALS: BP 157/81
[2017-07-10 20:00] VITALS: BP 130/95
[2017-07-10 21:50] VITALS: BP 130/95
[2017-07-10] MEDS: ATORVASTATIN 20 MG TAB PO SCH (22:33)
[2017-07-11 04:36] VITALS: BP 132/74
[2017-07-11] MEDS: ISOSORBIDE DINITRATE 10 MG TAB PO SCH ×3 (06:10→21:04)
[2017-07-11] MEDS: MEROPENEM 1gm/20ml IVPUSH 20 ML IV SCH ×3 (06:10→21:05)
[2017-07-11] MEDS: HYDROcodone-ACET 5/325MG TAB PO PRN ×3 (06:15→21:02)
[2017-07-11] MEDS: InsuLIN REG 1unit/0.01ml Soln (100units/ml) SC SCH ×4 (06:23→22:44)
[2017-07-11] MEDS: ACCU-CHEK COMFORT CURVE STRIP VI SCH ×4 (06:23→22:00)
[2017-07-11] MEDS: LEVALBUTEROL HCL 1.25 MG/3 ML NEB NEB SCH ×4 (06:38→22:00)
[2017-07-11] MEDS: Boost Glucose Control 8 Ounces PO SCH ×3 (08:48→18:29)
[2017-07-11] MEDS: VANCOMYCIN 1GM/250ML 250 ML IV SCH (08:48)
[2017-07-11 09:00] VITALS: BP 131/60
[2017-07-11] MEDS: ENOXAPARIN SOD 40 MG/0.4 ML SYRINGE SC SCH (09:44)
[2017-07-11] MEDS: ASPirin 81 mg TAB PO SCH (09:45)
[2017-07-11] MEDS: DIGOXIN 0.125 MG TAB PO SCH (09:51)
[2017-07-11] MEDS: AMIODARONE HCL 200 MG TAB PO SCH (09:51)
[2017-07-11] MEDS: PRO-STAT 64 30ML PO SCH (09:51)
[2017-07-11] MEDS: AZITHROMYCIN 500MG/ 250ML 250 ML IV SCH (09:52)
[2017-07-11 12:34] VITALS: BP 127/56
[2017-07-11] MEDS: FLUCONAZOLE 200MG/100ML 100 ML IV SCH (14:55)
[2017-07-11] MEDS: LACTULOSE 20Gm/30ML SOLN PO PRN (16:08)
[2017-07-11 17:00] VITALS: BP 137/67
[2017-07-11] MEDS: ATORVASTATIN 20 MG TAB PO SCH (21:02)
[2017-07-11 22:00] VITALS: BP 135/56
[2017-07-12 04:38] VITALS: BP 138/56
[2017-07-12 05:26] VITALS: BP 114/66
[2017-07-12] MEDS: LEVALBUTEROL HCL 1.25 MG/3 ML NEB NEB SCH (06:00)
[2017-07-12] MEDS: MEROPENEM 1gm/20ml IVPUSH 20 ML IV SCH (06:00)
[2017-07-12] MEDS: ISOSORBIDE DINITRATE 10 MG TAB PO SCH (06:01)
[2017-07-12] MEDS: InsuLIN REG 1unit/0.01ml Soln (100units/ml) SC SCH (06:01)
[2017-07-12] MEDS: HYDROcodone-ACET 5/325MG TAB PO PRN (06:02)
[2017-07-12] MEDS: ACCU-CHEK COMFORT CURVE STRIP VI SCH (06:02)
[2017-07-12 09:00] VITALS: BP 113/58
[2017-07-12] MEDS: ASPirin 81 mg TAB PO SCH (10:00)
[2017-07-12] MEDS: AZITHROMYCIN 500MG/ 250ML 250 ML IV SCH (10:00)
[2017-07-12] MEDS: PRO-STAT 64 30ML PO SCH (10:00)
[2017-07-12] MEDS: DIGOXIN 0.125 MG TAB PO SCH (10:00)
[2017-07-12] MEDS: AMIODARONE HCL 200 MG TAB PO SCH (10:00)
[2017-07-12] MEDS: ENOXAPARIN SOD 40 MG/0.4 ML SYRINGE SC SCH (10:00)
[2017-07-12] MEDS: Boost Glucose Control 8 Ounces PO SCH (10:56)
[2017-07-13] MEDS ORDERED: VANCOMYCIN 1GM/250ML 250 ML IV SCH (09:00)
== END 2017-07-12 10:56 | disposition home or self-care (01) | DRG 871 ==
LOC: ER 10:10 → EDBD 10:10 → TELE 10:11 → TELE-WESTW 18:52
PROVIDERS: ADMIT Internal Medicine; ATTEND Specialist
DX: A41.9 Sepsis, unspecified organism (principal); I21.4 Non-ST elevation (NSTEMI) myocardial infarction; I26.99 Other pulmonary embolism without acute cor pulmonale; I50.43 Acute on chronic combined systolic (congestive) and diastolic (congestive) heart failure; J96.21 Acute and chronic respiratory failure with hypoxia; J18.0 Bronchopneumonia, unspecified organism; I11.0 Hypertensive heart disease with heart failure; E87.1 Hypo-osmolality and hyponatremia; N39.0 Urinary tract infection, site not specified; J44.0 Chronic obstructive pulmonary disease with (acute) lower respiratory infection; E11.65 Type 2 diabetes mellitus with hyperglycemia; I25.5 Ischemic cardiomyopathy; E03.9 Hypothyroidism, unspecified; E78.5 Hyperlipidemia, unspecified; I25.10 Atherosclerotic heart disease of native coronary artery without angina pectoris; I25.2 Old myocardial infarction; I48.91 Unspecified atrial fibrillation; I67.2 Cerebral atherosclerosis; G89.29 Other chronic pain; M54.5 Low back pain; K80.20 Calculus of gallbladder without cholecystitis without obstruction; I70.0 Atherosclerosis of aorta; I08.0 Rheumatic disorders of both mitral and aortic valves; R62.7 Adult failure to thrive; Z53.20 Procedure and treatment not carried out because of patient's decision for unspecified reasons; Z95.0 Presence of cardiac pacemaker; Z95.1 Presence of aortocoronary bypass graft; Z79.4 Long term (current) use of insulin; Z79.82 Long term (current) use of aspirin; Z79.899 Other long term (current) drug therapy
CPT/HCPCS: 36415; 36600; 70450; 71045; 71046; 71250; 71275; 74176; 76705; 78226; 78582; 80048; 80053; 80202; 81001; 82150; 82805; 82962; 83036; 83605; 83690; 83735; 83880; 84484; 84702; 85007; 85025; 85027; 85610; 85730; 87040; 87070; 87086; 87205; 87804; 93005; 93306; 94640; 94761; 96365; 96375; 96379; J1450; J1815; J1956; J2185

== ENCOUNTER 2017-11-05 15:36 | Emergency (ER) | payer MEDICARE, OTHER ==
[~2017-11-05] VITALS: Ht 157.5 cm; Wt 72.6 kg
[~2017-11-05 15:36] MED LIST changes: +ACET300T2 PO; +ALPR0.5T7 PO; -ASPI81CH43; +ASPI81TA27 PO; -ATEN50TA; +ATEN50TA PO; +ATOR40TA52 PO; +AZAT50TA22 PO; +BISA-4 PO; -CALC0.25; -CHOL20003; +CRAN125T PO; -CRAN400T2; +ERGO1CAP6 PO; +FURO20TA3 PO; -FURO40TA4; -HUMALOG; -HYDR50TA15; +HYDR50TA15 PO; +INSLISPI SC; -ISOS1TAB37; +ISOS1TAB37 PO; +LINA1CAP2 PO; -LOSA50TA6; +LOSA50TA6 PO; -LOVA40TA55; +NITR0.4S29 SL; -NITR0.4S31; +RIVA15TA PO; +SITA50TA PO
[2017-11-05 16:48] LABS: Basophils # (auto) 0.1 uL; Eosinophils # (auto) 0.1 uL; Hematocrit 41.1 % (36.0-46.0); Hemoglobin 13.6 g/dL (12.2-16.2); Lymphocytes # (auto) 1.1 uL; Lymphocytes % (auto) 20.8 % (10.0-50.0); Mean Corpuscular Hemoglobin 33.6 pg (28.0-32.0); Mean Corpuscular Hgb Conc. 33.2 g/dL (32.0-36.0); Mean Corpuscular Volume 101.2 fL (80.0-100.0); Monocytes # (auto) 0.6 uL; Monocytes % (auto) 10.7 % (0.0-12.0); Neutrophils # (auto) 3.6 uL; Neutrophils % (auto) 66.5 % (37.0-80.0); Nucleated Red Blood Cells % 0.2 %; Platelet Count (auto) 89 10^3/uL (140-450); Red Blood Cells 4.06 10^6/uL (4.0-5.20); White Blood Cell 5.4 10^3/uL (4.4-10.8)
[2017-11-05 16:58] LABS: Red Cell Distribution Width 25.7 % (11.8-14.3)
[2017-11-05 17:07] LABS: Bilirubin, Total 1.8 mg/dL (0.2-1.0); Calcium 8.5 mg/dL (8.5-10.1); Potassium 3.6 mmol/L (3.5-5.1); Total Protein 6.7 g/dL (6.4-8.2)
[2017-11-05 17:44] VITALS: BP 115/53
== END 2017-11-05 19:02 | disposition home or self-care (01) ==
LOC: EDBD 15:36 → ER 15:37
DX: R06.03 Acute respiratory distress (principal); D69.6 Thrombocytopenia, unspecified; I50.40 Unspecified combined systolic (congestive) and diastolic (congestive) heart failure; I11.0 Hypertensive heart disease with heart failure; J90 Pleural effusion, not elsewhere classified; I25.10 Atherosclerotic heart disease of native coronary artery without angina pectoris; I25.2 Old myocardial infarction; E11.9 Type 2 diabetes mellitus without complications; E07.9 Disorder of thyroid, unspecified; Z95.0 Presence of cardiac pacemaker
CPT/HCPCS: 36415; 51702; 71045; 80053; 84484; 85025; 87040; 93005; 94761